=== PATIENT | female | born 1930 | race Caucasian/White ===

== ENCOUNTER 2018-04-09 12:03 | Observation (INO) | payer OTHER ==
[~2018-04-09] VITALS: Ht 154.9 cm; Wt 42.5 kg
[~2018-04-09 12:03] MED LIST: ASMANEX110 MCG IH; BUSPAR10 MG PO; BUSPAR15 MG PO; CARDURA2 M1 PO; CEFTIN250 MG PO; COZAAR100 MG PO; EVISTA60 MG PO; MAXAIR AUTOHALE14 GM IH; PREVACID30 MG PO; PRINIVIL20 MG PO; PROAIR HFA8.5 GM IH; PROTONIX40 MG PO; Phenergan PO; Prevacid PO; TESSALON PERLE100 MG PO; WYGESIC,DARV1 TABLET PO
[2018-04-09 12:56] LABS: HEMATOCRIT 34.3 % (36.0-46.0); MCH 30.9 PG (29.0-34.0); MCV 88.4 FL (83-99); PLATELET COUNT 343 K/uL (156-360); RBC DIS.WIDTH-SD 51.8 % (39-53); RED BLOOD COUNT 3.88 M/uL (3.80-5.20); WHITE BLOOD COUNT 12.7 K/uL (4.1-10.2)
[2018-04-09 13:03] LABS: CHLORIDE 93 mEq/L (99-109); POTASSIUM 4.3 mEq/L (3.7-5.4); SODIUM 128 mEq/L (136-147)
[2018-04-09 13:05] LABS: GLUCOSE 109 mg/dL (70-99); TOTAL PROTEIN 7.1 g/dL (6.4-8.3)
[2018-04-09 13:07] LABS: TOTAL BILIRUBIN 0.7 mg/dL (0.0-1.0)
[2018-04-09 13:08] LABS: ALKALINE PHOSPHATASE 69 IU/L (3-129)
[2018-04-09 13:09] LABS: CREATININE 0.8 mg/dL (0.6-1.3); GFR ESTIMATE (CALCULATED) > 59 mL/min/
[2018-04-09 13:10] LABS: AST (GOT) 19 IU/L (2-34); UREA NITROGEN (BUN) 16 mg/dL (9-23)
[2018-04-09 13:12] LABS: APPEARANCE CLEAR ((CLEAR)); BILIRUBIN NEGATIVE; BLOOD NEGATIVE; COLOR YELLOW ((YELLOW)); GLUCOSE (STRIP) NEGATIVE; KETONES 5; LEUKOCYTES NEGATIVE; NITRITE NEGATIVE; PROTEIN (STRIP) NEGATIVE; SPECIFIC GRAVITY 1.016 (1.000-1.030); UCUL ADDED? NO; UROBILINOGEN 0.2 MG/DL (0.2-1.0)
[2018-04-09 13:12] LABS: ALT (GPT) 14 IU/L (3-49)
[2018-04-09] MEDS ORDERED: ASMANEX TW200 MICRO1 IH (17:24)
[2018-04-09] MEDS ORDERED: TYLENOL EXTRA500 MG PO (17:26)
[2018-04-09] MEDS ORDERED: DESITIN57 GM TP (17:26)
[2018-04-09] MEDS ORDERED: GINSENG100 MG PO (17:27)
[2018-04-09] MEDS ORDERED: PREPARATION H C51 G1 PR (17:27)
[2018-04-09] MEDS ORDERED: VITAMIN B-12250 MCG PO (17:28)
[2018-04-09] MEDS ORDERED: ZANTAC150 MG PO (17:28)
[2018-04-09] MEDS ORDERED: CALCITONIN-SAL3.8 ML ALT NARES (17:28)
[2018-04-09] MEDS ORDERED: ZYRTEC10 M3 PO (17:29)
[2018-04-09] MEDS ORDERED: PULMICORT FLE180 MCG IH (17:29)
[2018-04-09] MEDS ORDERED: CENTRUM SILVER1 EAC4 PO (17:30)
[2018-04-09 18:20] VITALS: BP 149/71
[2018-04-09 19:25] VITALS: BP 141/67
[2018-04-09 23:31] VITALS: BP 134/56
[2018-04-10 02:50] VITALS: BP 122/58
[2018-04-10 06:13] LABS: HEMATOCRIT 27.9 % (36.0-46.0); MCHC 34.4 G/DL (30.0-36.0); PLATELET COUNT 279 K/uL (156-360); RBC DIS.WIDTH-CV 16.1 % (11.8-14.6); RBC DIS.WIDTH-SD 53.1 % (39-53); WHITE BLOOD COUNT 6.7 K/uL (4.1-10.2)
[2018-04-10 06:17] LABS: HEMOGLOBIN 9.6 G/DL (11.9-15.5)
[2018-04-10 06:20] LABS: CHLORIDE 97 MEQ/L (99-109); CREATININE 0.9 MG/DL (0.6-1.3); GFR ESTIMATE (CALCULATED) > 59 mL/min/; POTASSIUM 4.2 MEQ/L (3.7-5.4); SODIUM 129 MEQ/L (136-147); UREA NITROGEN (BUN) 15 mg/dL (9-23)
[2018-04-10 06:36] LABS: GLUCOSE 79 mg/dL (70-99)
[2018-04-10 07:54] VITALS: BP 135/60
== END 2018-04-10 15:16 | disposition home or self-care (01) ==
LOC: EME 12:03 → 5SOUTH 16:26 → EDOF 16:26 → 5SOUTH 16:26 → ENRESERV 16:28 → 5SOUTH 17:49
PROVIDERS: Student in an Organized Health Care Education/Training Program
DX: K52.9 Noninfective gastroenteritis and colitis, unspecified (principal); I10 Essential (primary) hypertension; K56.41 Fecal impaction; E87.1 Hypo-osmolality and hyponatremia; E86.0 Dehydration; J45.909 Unspecified asthma, uncomplicated; M19.90 Unspecified osteoarthritis, unspecified site; M81.0 Age-related osteoporosis without current pathological fracture; Z85.828 Personal history of other malignant neoplasm of skin; D64.9 Anemia, unspecified; Z60.2 Problems related to living alone; Z66 Do not resuscitate; Z88.5 Allergy status to narcotic agent; Z88.1 Allergy status to other antibiotic agents; Z88.6 Allergy status to analgesic agent; Z88.8 Allergy status to other drugs, medicaments and biological substances; Z90.710 Acquired absence of both cervix and uterus; Z90.49 Acquired absence of other specified parts of digestive tract
CPT/HCPCS: 71045; 74018; 74176; 80048; 80053; 81003; 82533 91; 85027; 87040; 99281; 99285; G0378; J0744; J1100; J1644; J2405; J7030; J7040; S0030

== ENCOUNTER 2018-06-18 18:48 | Inpatient (IN) | payer OTHER ==
[~2018-06-18] VITALS: Ht 154.9 cm; Wt 43.3 kg
[~2018-06-18 18:48] MED LIST changes: +ASMANEX TW200 MICRO1 IH; +CALCITONIN-SAL3.8 ML ALT NARES; +CENTRUM SILVER1 EAC4 PO; +DESITIN57 GM TP; +GINSENG100 MG PO; +PULMICORT FLE180 MCG IH; +TYLENOL EXTRA500 MG PO; +VITAMIN B-12250 MCG PO; +ZANTAC150 MG PO; +ZYRTEC10 M3 PO
[2018-06-18] MEDS ORDERED: PREPARATION H C51 G1 PR (21:16)
[2018-06-18] MEDS ORDERED: MEGARED OMEGA-1 EAC2 PO (21:16)
[2018-06-18] MEDS ORDERED: PANTOPRAZOLE SO40 MG PO (21:17)
[2018-06-18] MEDS ORDERED: RANITIDINE HCL150 MG PO (21:17)
[2018-06-18] MEDS ORDERED: DOXAZOSIN MESYLA2 MG PO (21:18)
[2018-06-18] MEDS ORDERED: ASMANEX TW200 MICRO1 IH (21:18)
[2018-06-18] MEDS ORDERED: LOSARTAN POTAS100 MG PO (21:18)
[2018-06-18 21:51] VITALS: BP 130/701
[2018-06-18 22:10] VITALS: BP 133/74
[2018-06-18 23:10] VITALS: BP 139/93
[2018-06-18 23:44] VITALS: BP 133/63
[2018-06-19] VITALS (10 sets, daily range): BP systolic 114–135; BP diastolic 55–63
[2018-06-19 01:55] LABS: CHLORIDE 90 mEq/L (99-109); POTASSIUM 4.1 mEq/L (3.7-5.4); SODIUM 123 mEq/L (136-147)
[2018-06-19 01:56] LABS: GLUCOSE 92 mg/dL (70-99)
[2018-06-19 02:00] LABS: CREATININE 0.9 mg/dL (0.6-1.3); GFR ESTIMATE (CALCULATED) > 59 mL/min/
[2018-06-19 02:01] LABS: UREA NITROGEN (BUN) 12 mg/dL (9-23)
[2018-06-19 05:48] LABS: HEMATOCRIT 21.4 % (36.0-46.0); HEMOGLOBIN 7.4 G/DL (11.9-15.5); MCH 29.8 PG (29.0-34.0); MCHC 34.6 G/DL (30.0-36.0); MCV 86.3 FL (83-99); PLATELET COUNT 404 K/uL (156-360); RBC DIS.WIDTH-CV 17.4 % (11.8-14.6); RBC DIS.WIDTH-SD 54.9 % (39-53); RED BLOOD COUNT 2.48 M/uL (3.80-5.20); WHITE BLOOD COUNT 5.5 K/uL (4.1-10.2)
[2018-06-19 06:07] LABS: CHLORIDE 90 MEQ/L (99-109); CREATININE 0.9 MG/DL (0.6-1.3); GFR ESTIMATE (CALCULATED) > 59 mL/min/; GLUCOSE 90 mg/dL (70-99); POTASSIUM 4.1 MEQ/L (3.7-5.4); SODIUM 124 MEQ/L (136-147); UREA NITROGEN (BUN) 12 mg/dL (9-23)
[2018-06-19 12:24] LABS: CHLORIDE 91 mEq/L (99-109); SODIUM 124 mEq/L (136-147)
[2018-06-19 12:26] LABS: GLUCOSE 93 mg/dL (70-99)
[2018-06-19 12:30] LABS: CREATININE 0.9 mg/dL (0.6-1.3); GFR ESTIMATE (CALCULATED) > 59 mL/min/
[2018-06-19 12:31] LABS: UREA NITROGEN (BUN) 12 mg/dL (9-23)
[2018-06-20 03:44] VITALS: BP 147/67
[2018-06-20 05:33] LABS: BASOPHIL (%) 0.9 % (0-1); EOSINOPHIL (%) 3.6 % (0-5); EOSINOPHIL COUNT 0.2 K/uL (0-0.3); HEMOGLOBIN 8.9 G/DL (11.9-15.5); IMMATURE GRANULOCYTE (%) 1.1 % (0.0-0.7); LYMPHOCYTE COUNT 0.7 K/uL (1.0-2.8); MCH 30.2 PG (29.0-34.0); MCHC 34.2 G/DL (30.0-36.0); MCV 88.1 FL (83-99); MONOCYTE (%) 21.8 % (3-12); NEUTROPHIL (%) 57.6 % (45-76); NEUTROPHIL COUNT 2.7 K/uL (1.8-6.4); PLATELET COUNT 389 K/uL (156-360); RBC DIS.WIDTH-CV 17.2 % (11.8-14.6); RED BLOOD COUNT 2.95 M/uL (3.80-5.20); WHITE BLOOD COUNT 4.7 K/uL (4.1-10.2)
[2018-06-20 05:59] LABS: CHLORIDE 95 MEQ/L (99-109); CREATININE 0.9 MG/DL (0.6-1.3); GFR ESTIMATE (CALCULATED) > 59 mL/min/; GLUCOSE 88 mg/dL (70-99); MAGNESIUM 1.7 mg/dl (1.3-2.7); PHOSPHORUS 3.9 mg/dL (2.5-4.9); SODIUM 129 MEQ/L (136-147); UREA NITROGEN (BUN) 15 mg/dL (9-23); URIC ACID 2.6 mg/dL (3.1-9.2)
[2018-06-20 08:12] VITALS: BP 129/64
[2018-06-20 11:27] VITALS: BP 136/67
[2018-06-20 12:03] LABS: HEMATOCRIT 28.3 % (36.0-46.0); HEMOGLOBIN 10.1 G/DL (11.9-15.5); MCH 31.4 PG (29.0-34.0); MCHC 35.7 G/DL (30.0-36.0); MCV 87.9 FL (83-99); PLATELET COUNT 426 K/uL (156-360); RBC DIS.WIDTH-CV 17.2 % (11.8-14.6); RED BLOOD COUNT 3.22 M/uL (3.80-5.20); WHITE BLOOD COUNT 6.6 K/uL (4.1-10.2)
[2018-06-20 12:18] LABS: CHLORIDE 95 mEq/L (99-109); POTASSIUM 4.2 mEq/L (3.7-5.4); SODIUM 129 mEq/L (136-147)
[2018-06-20 12:20] LABS: GLUCOSE 90 mg/dL (70-99)
[2018-06-20 12:23] LABS: GFR ESTIMATE (CALCULATED) 56 mL/min/
[2018-06-20 12:24] LABS: UREA NITROGEN (BUN) 15 mg/dL (9-23)
[2018-06-20 16:05] VITALS: BP 140/96
[2018-06-20 20:45] VITALS: BP 135/60
[2018-06-21 00:34] VITALS: BP 136/66
[2018-06-21 04:00] VITALS: BP 144/65
[2018-06-21 06:32] LABS: BASOPHIL (%) 0.9 % (0-1); BASOPHIL COUNT 0.1 K/uL (0-0.1); EOSINOPHIL (%) 3.6 % (0-5); EOSINOPHIL COUNT 0.2 K/uL (0-0.3); HEMATOCRIT 26.6 % (36.0-46.0); IMMATURE GRANULOCYTE (%) 1.6 % (0.0-0.7); LYMPHOCYTE (%) 15.7 % (15-42); LYMPHOCYTE COUNT 0.9 K/uL (1.0-2.8); MCH 30.3 PG (29.0-34.0); MCHC 33.8 G/DL (30.0-36.0); MCV 89.6 FL (83-99); MONOCYTE (%) 19.6 % (3-12); MONOCYTE COUNT 1.1 K/uL (0-0.8); NEUTROPHIL (%) 58.6 % (45-76); NEUTROPHIL COUNT 3.3 K/uL (1.8-6.4); PLATELET COUNT 402 K/uL (156-360); RBC DIS.WIDTH-CV 17.1 % (11.8-14.6); RED BLOOD COUNT 2.97 M/uL (3.80-5.20); WHITE BLOOD COUNT 5.6 K/uL (4.1-10.2)
[2018-06-21 06:56] LABS: CHLORIDE 96 MEQ/L (99-109); CREATININE 0.9 MG/DL (0.6-1.3); GFR ESTIMATE (CALCULATED) > 59 mL/min/; GLUCOSE 86 mg/dL (70-99); POTASSIUM 4.4 MEQ/L (3.7-5.4); SODIUM 129 MEQ/L (136-147); UREA NITROGEN (BUN) 22 mg/dL (9-23)
[2018-06-21 07:41] VITALS: BP 141/76
[2018-06-21 11:46] LABS: CHLORIDE 100 mEq/L (99-109); POTASSIUM 4.5 mEq/L (3.7-5.4); SODIUM 131 mEq/L (136-147)
[2018-06-21 11:47] LABS: GLUCOSE 106 mg/dL (70-99)
[2018-06-21 11:51] VITALS: BP 126/58
[2018-06-21 11:51] LABS: GFR ESTIMATE (CALCULATED) 56 mL/min/
[2018-06-21 11:52] LABS: UREA NITROGEN (BUN) 18 mg/dL (9-23)
[2018-06-21] MEDS ORDERED: SODIUM CHLORIDE1 G1 PO (14:30)
[2018-06-21] MEDS ORDERED: ROPINIROLE HCL1 MG PO (14:30)
[2018-06-21] MEDS ORDERED: POLYETHYLENE GL17 GM PO (14:31)
== END 2018-06-21 15:49 | disposition home health service (06) | DRG 812 ==
LOC: EME 18:48 → 5SOUTH 21:49 → EDOF 21:49 → ENRESERV 21:50 → EDOF 22:25 → 5SOUTH 23:39
PROVIDERS: Hospitalist; Internal Medicine Nephrology; Nurse Practitioner Adult Health
PROC: 30233N1 Transfusion of Nonautologous Red Blood Cells into Peripheral Vein, Percutaneous Approach (ICD-10-PCS; principal; 2018-06-18)
DX: D50.0 Iron deficiency anemia secondary to blood loss (chronic) (principal); K92.2 Gastrointestinal hemorrhage, unspecified; E22.2 Syndrome of inappropriate secretion of antidiuretic hormone; I10 Essential (primary) hypertension; K21.9 Gastro-esophageal reflux disease without esophagitis; F41.9 Anxiety disorder, unspecified; Z66 Do not resuscitate; Z87.891 Personal history of nicotine dependence; Z88.5 Allergy status to narcotic agent; Z88.6 Allergy status to analgesic agent; Z85.828 Personal history of other malignant neoplasm of skin
CPT/HCPCS: 36415; 71045; 74177; 80048; 80048 91; 80053; 81003; 82533 91; 82607; 83735; 83935; 84100; 84300; 84443; 84550; 85025; 85027; 85379; 86850; 86900; 86901; 86920; 93005; 94799; 99281; 99285; J1940; J7030; J7040; P9016